=== PATIENT | male | born 1995 ===

== ENCOUNTER → 2021-03-18 06:24 | Outpatient (CLI) | payer OTHER | END | disposition home or self-care (01) | LOC: RAD 06:24 | PROVIDERS: ATTEND Obstetrics & Gynecology | DX: I10 Essential (primary) hypertension (principal); R07.89 Other chest pain ==

== ENCOUNTER 2021-03-22 08:00 | Outpatient (CLI) | payer OTHER | END 2021-03-22 08:30 | disposition home or self-care (01) | LOC: PPH VACUNA 08:00 | PROVIDERS: ATTEND Emergency Medicine Pediatric Emergency Medicine | DX: Z23 Encounter for immunization (principal) ==

== ENCOUNTER 2021-07-29 07:30 | Emergency (ER) | payer OTHER ==
[~2021-07-29] VITALS: Ht 170.2 cm; Wt 81.6 kg
== END 2021-07-29 09:44 | disposition home or self-care (01) ==
LOC: ER 07:30
DX: B34.8 Other viral infections of unspecified site (principal)

== ENCOUNTER 2021-07-29 13:45 | Outpatient (CLI) | payer OTHER | END 2021-07-29 14:15 | disposition home or self-care (01) | LOC: ASH CLINIC 13:45 | PROVIDERS: ATTEND Emergency Medicine | DX: U07.1 COVID-19 (principal); Z23 Encounter for immunization ==

== ENCOUNTER 2021-12-15 03:58 | Emergency (ER) | payer OTHER ==
[~2021-12-15] VITALS: Ht 170.2 cm; Wt 86.2 kg
[2021-12-15] MEDS ORDERED: NORVASC5 MG (04:11)
[2021-12-15] MEDS ORDERED: ADVIL (04:11)
[2021-12-15] MEDS ORDERED: COZAAR100 MG (04:11)
[2021-12-15] MEDS ORDERED: ORASEP SPRAY30 ML MM (05:14)
== END 2021-12-15 05:29 | disposition home or self-care (01) ==
LOC: ER 03:58
DX: U07.1 COVID-19 (principal); B34.9 Viral infection, unspecified; I10 Essential (primary) hypertension

== ENCOUNTER 2022-08-29 17:13 | Emergency (ER) | payer OTHER ==
[~2022-08-29] VITALS: Ht 170.2 cm; Wt 90.7 kg
[~2022-08-29 17:13] MED LIST: ADVIL; COZAAR100 MG; NORVASC5 MG; ORASEP SPRAY30 ML MM
== END 2022-08-29 21:17 | disposition home or self-care (01) ==
LOC: ER 17:13
DX: R00.2 Palpitations (principal)